=== PATIENT | male | born 1935 ===

== ENCOUNTER 2018-09-16 07:23 | Outpatient (CLI) | payer OTHER | END 2018-09-16 07:34 | disposition home or self-care (01) | LOC: RAD 07:23 → MRI 07:45 | DX: M25.561 Pain in right knee (principal); M25.562 Pain in left knee; M25.511 Pain in right shoulder | CPT/HCPCS: 73221; 73721 ==

== ENCOUNTER 2019-06-19 13:05 | Inpatient (IN) | payer OTHER ==
[~2019-06-19] VITALS: Ht 172.7 cm; Wt 91.6 kg
[2019-07-25] MEDS ORDERED: ATORVASTATIN CA40 MG (08:02)
[2019-07-25] MEDS ORDERED: COZAAR50 MG (08:02)
[2019-07-25] MEDS ORDERED: LANTUS SOL100 UNIT/1 (08:02)
[2019-07-25] MEDS ORDERED: ACTOS30 MG (08:03)
[2019-07-25] MEDS ORDERED: GLIMEPIRIDE2 MG (08:03)
[2019-07-25] MEDS ORDERED: LASIX20 MG (08:04)
[2019-07-25] MEDS ORDERED: CLONAZEPAM0.5 MG (08:04)
[2019-07-25] MEDS ORDERED: ALLOPURINOL300 MG (08:04)
[2019-07-25] MEDS ORDERED: DUTASTERIDE-TA1 EACH (08:05)
[2019-07-25] MEDS ORDERED: ASPIR 8181 MG (08:06)
[2019-07-25] MEDS ORDERED: AGGRENOX 25 MG1 EACH (08:06)
== END 2019-08-03 16:40 | DRG 470 ==
LOC: SURG 08-01 04:58 → O/R 08-01 04:58 → SURG 08-01 08:00
PROVIDERS: ADMIT Orthopaedic Surgery
PROC: 0SRC0J9 Replacement of Right Knee Joint with Synthetic Substitute, Cemented, Open Approach (ICD-10-PCS; principal; 2019-08-01 10:00)
DX: M17.11 Unilateral primary osteoarthritis, right knee (principal); D62 Acute posthemorrhagic anemia; N17.8 Other acute kidney failure; E11.9 Type 2 diabetes mellitus without complications; E11.22 Type 2 diabetes mellitus with diabetic chronic kidney disease; I12.9 Hypertensive chronic kidney disease with stage 1 through stage 4 chronic kidney disease, or unspecified chronic kidney disease; N18.3 Chronic kidney disease, stage 3 (moderate); Z79.4 Long term (current) use of insulin

== ENCOUNTER 2020-01-24 07:31 | Outpatient (CLI) | payer OTHER ==
[~2020-01-24 07:31] MED LIST: ACTOS30 MG; AGGRENOX 25 MG1 EACH; ALLOPURINOL300 MG; ASPIR 8181 MG; ATORVASTATIN CA40 MG; CLONAZEPAM0.5 MG; COZAAR50 MG; DUTASTERIDE-TA1 EACH; GLIMEPIRIDE2 MG; LANTUS SOL100 UNIT/1; LASIX20 MG
== END 2020-01-24 07:52 | disposition home or self-care (01) ==
LOC: NUCLEAR 07:31
DX: R60.0 Localized edema (principal); M25.561 Pain in right knee; M25.562 Pain in left knee; M79.604 Pain in right leg; M79.605 Pain in left leg